=== PATIENT | male | born 1990 | race Hispanic/Latino ===

== ENCOUNTER 2018-09-29 03:48 | Emergency (ER) | payer BC, SELFPAY | END 2018-09-29 04:28 | LOC: SCSER 03:48 | DX: Z04.1 Encounter for examination and observation following transport accident (principal); F32.9 Major depressive disorder, single episode, unspecified; F17.210 Nicotine dependence, cigarettes, uncomplicated; V43.62XA Car passenger injured in collision with other type car in traffic accident, initial encounter | CPT/HCPCS: 99283 ==